=== PATIENT | male | born 1955 | race Caucasian/White ===

== ENCOUNTER → 2022-08-24 | Outpatient (CLI) | payer BC ==
--- NOTE | 2022-08-24 10:52 | CTL ---
EXAMINATION TYPE: CT Low Dose Lung DATE OF EXAM ORDERED: 08/24/2022 HISTORY: . Lung cancer screening CT DLP: 109.[address] CTDI: 2.80 mGy Automated exposure control for dose reduction was used. SCREENING VISIT: COMPARISON: None TECHNIQUE: Low dose computed tomography scan was performed through the chest at 1 mm thick sections a nd reconstructed images in multiple planes at 1 mm and [address] DIAGNOSTIC QUALITY: Satisfactory FINDINGS: Biapical pleural thickening. There is a calcified 3 mm granuloma in the right upper lobe. There is a 3 mm nodule anterior segment left upper lobe axial image 112 which appears calcified ambar tible with granuloma There are multiple sub-5 mm subpleural nodules There is a 2 mm nodule axial image 210 right lower lobe There is subsegmental linear changes most typical of atelectasis. No focal pneumonia. Pleural effusio n. No pneumothorax. No pleural calcifications. Atherosclerotic change of the vasculature including the aorta and coronary arteries. There is a mild aneurysmal dilation of the ascending aorta measuring 4.3 cm. Heart size normal. Hypertrophic and dege nerative change of the spine. A calcification in the right adrenal gland is nonspecific. Mild changes of COPD with central and basi lar mild bronchiectasis. Poststernotomy changes seen. IMPRESSION: 1. Multiple sub-5 mm nodules one of which is calcified compatible with granuloma. Nodules have a jennifer gn appearance. 2. Central and basilar bronchiectasis with changes of mild COPD 3. Aneurysmal dilation ascending aorta measuring 4.3 cm. 4. Dense coronary artery calcification. Correlate clinically. CT LUNG RAD AND CT CHEST RECOMMENDATION: Lung-Rad 2 Benign Appearance or Behavior: Continue annual sc reening with LDCT in 12 months. S Modifier (other clinically significant findings): S
== END | disposition home or self-care (01) ==
LOC: RADCTMAIN 08:43
PROVIDERS: ATTEND Student in an Organized Health Care Education/Training Program
DX: Z12.2 Encounter for screening for malignant neoplasm of respiratory organs (principal); J44.9 Chronic obstructive pulmonary disease, unspecified; I71.21 Aneurysm of the ascending aorta, without rupture; I25.10 Atherosclerotic heart disease of native coronary artery without angina pectoris; R91.8 Other nonspecific abnormal finding of lung field; Z87.891 Personal history of nicotine dependence
CPT/HCPCS: 71271

== ENCOUNTER → 2023-09-29 | Outpatient (CLI) | payer BC ==
--- NOTE | 2023-09-29 10:34 | CTL ---
EXAMINATION TYPE: CT Low Dose Lung DATE OF EXAM: 09/29/2023 10:01 AM CLINICAL INDICATION:Male, 68 years old with history of Z87.891 PERSONAL HISTORY OF NICOTINE DEPENDENC E; history of smoker , history of tobacco use. COMPARISON: 08/24/2022 TECHNIQUE: Multiple axial non-contrast scans were obtained from approximately the lung apices through the upper abdomen. Coronal and sagittal reformatted images were obtained. Low dose technique was uti lized. CT DLP: 113.1 mGycm, Automated exposure control for dose reduction was used. CT Contrast: Contrast used: None Oral contrast used: None FINDINGS: ======== Lack of intravenous contrast and low dose technique limits the evaluation of the vascular and soft ti ssue structures. LUNGS: No evidence of pulmonary fibrosis. No evidence of focal consolidation, pneumothorax or pleural effusion. Mild emphysema changes present throughout the lungs. Mild paraseptal emphysema changes also present. Nodules: RUL: 3 mm series 5 image 19.. Calcified granuloma series 3 image 8. RML: None. RLL: 3 mm series 5 image 38. EVIE: 3 mm series 5 image 25 LLL: None. AIRWAY: Patent and unremarkable. HEART: Size within normal limits. Calcification throughout the coronary arteries. MEDIASTINUM: No gross evidence of adenopathy. VASCULATURE: No aortic aneurysm. MUSCULOSKELETAL: No acute osseous abnormalities SOFT TISSUES/LYMPH NODES: Unremarkable. LOWER NECK: No significant findings. UPPER ABDOMEN: Likely sequela of prior trauma to the right adrenal gland with calcifications. IMPRESSION: 1. Stable pulmonary nodules. 2. Severe coronary artery atherosclerosis. 3. Mild emphysema. CT LUNG RAD AND CT CHEST RECOMMENDATION: Lung-Rad 2 Benign Appearance or Behavior: Continue annual sc reening with LDCT in 12 months. S Modifier (other clinically significant findings): None Recommend smoking cessation (if current smoker), or continuation of smoking cessation (if prior smoke r). Annual screening for lung cancer with low-dose computed tomography is recommended in adults ages 55 to 77 years who have a 30 pack-year smoking history and currently smoke or have quit within the pa st 15 years. Screening should be discontinued once a person has not smoked for 15 years or develops a health problem that substantially limits life expectancy or the ability or willingness to have curat cynthia lung surgery. Lung rads 2021 [email or web address]
== END | disposition home or self-care (01) ==
LOC: RADCTMAIN 09:39
PROVIDERS: ATTEND Student in an Organized Health Care Education/Training Program
DX: Z12.2 Encounter for screening for malignant neoplasm of respiratory organs (principal); J43.9 Emphysema, unspecified; I25.10 Atherosclerotic heart disease of native coronary artery without angina pectoris; R91.8 Other nonspecific abnormal finding of lung field; Z87.891 Personal history of nicotine dependence
CPT/HCPCS: 71271

== ENCOUNTER → 2024-05-12 | Outpatient (CLI) | payer BC ==
--- NOTE | 2024-05-12 09:43 | US ---
EXAMINATION TYPE: US abdomen complete DATE OF EXAM: 05/12/2024 COMPARISON: NONE CLINICAL INDICATION: Male, 68 years old with history of Pain r10.84; Abd pain/gas TECHNIQUE: Multiple sonographic images of the abdomen are obtained. FINDINGS: EXAM MEASUREMENTS: Liver Length: 15.7 cm Gallbladder Wall: 0.2 cm CBD: 0.3 cm Spleen: 9.8 cm Right Kidney: 10.9x4.8x5.3 cm Left Kidney: 11.6x5.5x5.6 cm Pancreas: wnl Liver: wnl Gallbladder: 4mm polyp noted near fundus Evidence for sonographic Alford's sign: No CBD: wnl Spleen: wnl Right Kidney: wnl Left Kidney: wnl Upper IVC: wnl Abd Aorta: focal dilation measuring up to 2.6cm at the distal aorta, plaque noted throughout. The liver is homogenous. The intrahepatic portion of the IVC and proximal abdominal aorta are within normal limits. There is no evidence of cholelithiasis. Common bile duct is unremarkable. The visu alized portions of the pancreas are homogenous. The spleen is unremarkable. Kidneys are symmetric a nd free of hydronephrosis. No renal lesions are seen. IMPRESSION: 1. No evidence for acute process. 2. Gallbladder polyp suggested consider short-term follow-up in 6 months to ensure stability. 3. Abdominal aorta ectasia up to 2.6 cm.
== END | disposition home or self-care (01) ==
LOC: RADUSWWP 07:37
PROVIDERS: ATTEND Family Medicine
DX: K82.4 Cholesterolosis of gallbladder (principal); I77.811 Abdominal aortic ectasia
CPT/HCPCS: 76700

== ENCOUNTER → 2025-01-27 | Outpatient (CLI) | payer MEDICARE, OTHER ==
--- NOTE | 2025-01-28 09:19 | MR ---
EXAMINATION TYPE: MR Prostate wo/w con DATE OF EXAM: 01/27/2025 9:11 AM COMPARISON: None. CLINICAL INDICATION: Male, 69 years old with history of Z12.2 SCREENING LUNG CA F17.210 CURRENT SMOKE R; Elevated PSA. TECHNIQUE: Multi-planar, multi-sequence imaging of the pelvis is performed prior to and following the uncomplicated administration of bolus intravenous gadolinium. IV Contrast: 9 mL Gadobutrol Interpretive Criteria: PI-RADS v2.1 SERUM PSA: 11-17-24 = 4.99 09-25-24 = 5.25 SURGICAL PATHOLOGY: No data available. FINDINGS: Prostatic dimensions: 4.8 x 4.8 x 3.1 cm. "Bullet" Volume:46.75 (PSA density=0.11 ng/mL/mL) CENTRAL GLAND (Central and Transition Zones/CZ+TZ): Multiple bilateral, heterogenous appearing hypertrophic stromal nodules, without suspicious lesion. M edian lobe hypertrophy with protrusion into the base of the bladder. (PI-RADS 2) PERIPHERAL ZONE (PZ): Bilateral linear, indistinct wedgelike areas of low ADC, and low T2 signal, No evidence of masslike a bnormality, or localized perfusional hypervascularity, to further suggest a focus of clinically signi ficant prostate cancer. (PI-RADS 2) SEMINAL VESICLES (SV): Hemorrhagic/proteinaceous contents within the bilateral seminal vesicles noted with intrinsic T1 sign al foci seen bilaterally with peripheral low T2 signal. PERIPROSTATIC TISSUES: Unremarkable. LYMPH NODES: No enlarged pelvic lymph node. REMAINING PELVIS: Bladder wall is within normal limits given distention. No abnormal free or organized intrapelvic fluid collection. No pathologic bowel dilation or mural thickening. No hernia visualized OSSEOUS STRUCTURES: No suspicious osseous abnormality. IMPRESSION: 1. No specific features for high-risk prostate cancer. Maximum PI-RADS score: 2. 2. Mild BPH, estimated gland volume 46.75 (PSA density=0.11 ng/mL/mL) 3. No suspicious osseous lesion. No lymphadenopathy. No evidence of prostate adenocarcinoma involving the periprostatic tissues. [facility], , 01/28/2025 9:17 AM
== END | disposition home or self-care (01) ==
LOC: RADMRIMAIN 08:01
PROVIDERS: ATTEND Urology
DX: N40.0 Benign prostatic hyperplasia without lower urinary tract symptoms (principal); R97.20 Elevated prostate specific antigen [PSA]
CPT/HCPCS: 72197; A9585